=== PATIENT | male | born 1985 | race Caucasian/White ===

== ENCOUNTER 2017-08-03 21:41 | Emergency (ER) | payer SELFPAY ==
[2017-08-03] MEDS ORDERED: SULFA/TRIMETH 800/160 (DS) TAB 1 EA TAB PO ONE (21:58)
[2017-08-03 21:59] VITALS: BP 143/79; TEMP 98.8; O2SAT 98
--- NOTE | 2017-08-03 22:02 | ED.PDOC ---
History of Present Illness - General Chief Complaint: Skin/Abrasion/Tear Stated Complaint: "insect bite", elbow abcess Time Seen by Provider: 08/03/17 21:58 Source: patient Exam Limitations: no limitations - History of Present Illness Initial Comments: the patient is a 31-year-old male presenting to emergency room secondary to a small abscess forming with surrounding cellulitis to the posterior aspect left elbow. He thinks it started 2 or 3 days ago. It has been draining a little bit. No fever. No evidence of sepsis. Timing/Duration: unsure Severity: mild Improving Factors: nothing Worsening Factors: nothing Allergies/Adverse Reactions: Allergies NO KNOWN ALLERGY Allergy (Verified 05/23/12 11:46) Home Medications: Ambulatory Orders Sulfa/Trimeth 800/160 (Ds) Tab [Bactrim DS Tab] 1 ea PO BID #14 tab 08/03/17 Review of Systems - Review of Systems Constitutional: States: no symptoms reported EENTM: States: no symptoms reported Respiratory: States: no symptoms reported Cardiology: States: no symptoms reported Gastrointestinal/Abdominal: States: no symptoms reported Genitourinary: States: no symptoms reported Musculoskeletal: States: no symptoms reported Skin: States: see HPI Neurological: States: no symptoms reported Endocrine: States: no symptoms reported All other Systems: No Change from Baseline Physical Exam - Physical Exam General Appearance: Alert, Comfortable, No apparent distress Eye Exam: bilateral normal Ears, Nose, Throat: hearing grossly normal Neck: full range of motion, supple Respiratory: no respiratory distress, no accessory muscle use Cardiovascular/Chest: normal peripheral pulses, no edema Rectal Exam: deferred Extremity: normal range of motion, no pedal edema, normal capillary refill Neurologic: signaling project engineer II-XII nml as tested, alert, normal mood/affect, oriented x 3 Skin Exam: normal color - with the exception of the cellulitis andabscess of left elbow. Comments: Vital Signs - 24 hr 08/03/17 21:52 Temperature 98.8 F Pulse Rate [ 105 H left] Respiratory 18 Rate Blood Pressure 143/79 [left] O2 Sat by Pulse 98 Oximetry Progress - Progress Progress: 08/03/17 22:00 the patient's 31-year-old male with a small abscess and extending cellulitis to the posterior aspect left elbow. Abscess is in the skin only. Risk and benefits of I&D were explained and patient agreed to proceed. Wound is cleaned with alcohol. A 15 blade scalpel was used to make a three-quarter cm incision over the head of the abscess. Less than 1 cc of pus was obtained. Band-Aid was applied. No cultures obtained. Patient received a dose of Bactrim. Needs to wash the wound couple times a day with soap and water. He' ll be written for Bactrim for the next week. ER warnings were given for any worsening. Departure - Departure Clinical Impression: Abscess Disposition: Discharge to Home or Self Care Condition: Fair Departure Forms: ED Discharge - Pt. Copy, Patient Portal Self Enrollment Instructions: DI for Wound Infection Diet: regular diet Activity: increase activity as tolerated Prescriptions: Sulfa/Trimeth 800/160 (Ds) Tab [Bactrim DS Tab] 1 ea PO BID #14 tab Home Medications: Ambulatory Orders Sulfa/Trimeth 800/160 (Ds) Tab [Bactrim DS Tab] 1 ea PO BID #14 tab 08/03/17 Additional Instructions: the patient's 31-year-old male with a small abscess and extending cellulitis to the posterior aspect left elbow. Abscess is in the skin only. Risk and benefits of I&D were explained and patient agreed to proceed. Wound is cleaned with alcohol. A 15 blade scalpel was used to make a three-quarter cm incision over the head of the abscess. Less than 1 cc of pus was obtained. Band-Aid was applied. No cultures obtained. Patient received a dose of Bactrim. Needs to wash the wound couple times a day with soap and water. He' ll be written for Bactrim for the next week. ER warnings were given for any worsening.
== END 2017-08-03 22:11 | disposition home or self-care (01) ==
LOC: ER 21:41
DX: L02.414 Cutaneous abscess of left upper limb (principal); Z87.891 Personal history of nicotine dependence

== ENCOUNTER 2017-08-04 18:59 | Emergency (ER) | payer SELFPAY ==
[2017-08-04 19:10] VITALS: BP 137/78; TEMP 98.5; O2SAT 99
--- NOTE | 2017-08-04 19:15 | ED.PDOC ---
History of Present Illness - General Chief Complaint: Skin/Abrasion/Tear Time Seen by Provider: 08/04/17 19:12 Source: patient, Vital Signs reviewed Additional Information: 31 YEAR OLD WHITE MALE WHO HAD AND INCISION DRAINAGE DONE LAST NIGHT HERE IN THE ED RETURNS HE IS CONCERNED THERE IS STILL PAIN AND REDNESS AROUND THE DRAINAGE SITE ON THE LEFT ELBOW - History of Present Illness Timing/Duration: 24 hours Severity: mild Improving Factors: nothing Worsening Factors: nothing Associated Symptoms: denies symptoms Allergies/Adverse Reactions: Allergies NO KNOWN ALLERGY Allergy (Verified 05/23/12 11:46) Home Medications: Ambulatory Orders Sulfa/Trimeth 800/160 (Ds) Tab [Bactrim DS Tab] 1 ea PO BID #14 tab 08/03/17 Review of Systems - Review of Systems Constitutional: States: no symptoms reported EENTM: States: no symptoms reported Respiratory: States: no symptoms reported Cardiology: States: no symptoms reported Gastrointestinal/Abdominal: States: no symptoms reported Genitourinary: States: no symptoms reported Skin: States: see HPI Neurological: States: no symptoms reported Endocrine: States: no symptoms reported Hematologic/Lymphatic: States: no symptoms reported Past Medical History (General) - Patient Medical History Hx Asthma: No Hx Diabetes: No Hx Gastroesophageal Reflux: No - Vaccination History Hx Tetanus, Diphtheria Vaccination: Yes - Social History Hx Tobacco Use: Yes Hx Alcohol Use: Yes - Female History Patient : No Family Medical History - Family History Mother Family History: Unknown Physical Exam - Physical Exam General Appearance: Alert, Anxious Eye Exam: bilateral normal Ears, Nose, Throat: hearing grossly normal, normal ENT inspection, normal pharynx, abnormal TM (R) Neck: non-tender, full range of motion, supple Respiratory: chest non-tender, lungs clear, normal breath sounds, no respiratory distress, no accessory muscle use, respiratory distress Cardiovascular/Chest: normal peripheral pulses, regular rate, rhythm, no edema, no gallop, no JVD, no murmur Gastrointestinal/Abdominal: normal bowel sounds, non tender, soft, no organomegaly, no pulsatile mass Back Exam: normal inspection Extremity: other - LEFT ELBOW THE DRAINAGE SITE OVER THE LEFT OLECRANON BURSA IS RED BUT NO DRAINAGE NO FLUCTUATION NOTED Neurologic: wire taper II-XII nml as tested, no motor/sensory deficits, alert, normal mood/affect, oriented x 3 Progress - Results/Orders Results/Orders: HE WAS REASSURED THAT THERE IS NO COLLECTION OF PUS NOTED AT THIS TIME HE IS ON BACTRIM SUGGEST TO CONTINUE THE SAME AND FOLLOW UP WITH HIS PCP [facility] IF THERE IS FEVER CHILLS DRAINAGE SWELLING AT THE SITE Departure - Departure Clinical Impression: Abscess Time of Disposition: :18 Disposition: Discharge to Home or Self Care Condition: Good Departure Forms: ED Discharge - Pt. Copy, Patient Portal Self Enrollment Instructions: DI for Abrasion Diet: resume usual diet Home Medications: Ambulatory Orders Sulfa/Trimeth 800/160 (Ds) Tab [Bactrim DS Tab] 1 ea PO BID #14 tab 08/03/17
[2017-08-04] MEDS ORDERED: HYDROCOD/APAP 5/325 (ER DISP) #3 TAB PO ONE ×2 (19:28→19:29)
== END 2017-08-04 19:36 | disposition home or self-care (01) ==
LOC: ER 18:59
DX: L02.414 Cutaneous abscess of left upper limb (principal); Z87.891 Personal history of nicotine dependence

== ENCOUNTER 2018-10-30 08:07 | Emergency (ER) | payer SELFPAY ==
[2018-10-30] MEDS ORDERED: NALOXONE HCL INJ 1 MG/ML SYG IV ONE (08:15)
[2018-10-30 08:35] VITALS: O2SAT 100
--- NOTE | 2018-10-30 09:04 | ED.PDOC ---
History of Present Illness - General Chief Complaint: Behavioral / Psych Stated Complaint: Drug use/possible OD Time Seen by Provider: 10/30/18 09:04 Source: police Exam Limitations: clinical condition - patient hallucinating;agitated - History of Present Illness Initial Comments: Agapito Lewis 32 y/o male brought by police communications operator to er after his grandmother called up 911 on him since he had been combative and hallucinating at home stating he had been taking bunch of illicit drugs thelast one week and had been with several women.Grandmother stated to police communications operator whownrt to their house that he grabbed his grandmas cellphone while calling [phone] so he was then placed on police custody.He mentioned to nurse that he took pills- dlaudid,methadone,and reglan Timing/Duration: this morning Severity: moderate Episode Description: see hpi Allergies/Adverse Reactions: Allergies NO KNOWN ALLERGY Allergy (Verified 05/23/12 11:46) Home Medications: Ambulatory Orders Sulfa/Trimeth 800/160 (Ds) Tab [Bactrim DS Tab] 1 ea PO BID #14 tab 08/03/17 Review of Systems - Review of Systems Neurological: States: see HPI, emotional problems, other - drug use Unable to Obtain Due To: condition All other Systems: Reviewed and Negative, No Change from Baseline Past Medical History (General) - Patient Medical History Hx Asthma: No Hx Diabetes: No Hx Gastroesophageal Reflux: No Surgical History: other - hip/ leg - Vaccination History Hx Tetanus, Diphtheria Vaccination: Yes Hx Influenza Vaccination: No - Social History Hx Tobacco Use: - Unknown Hx Alcohol Use: - Unknown Hx Substance Use: Yes Hx Substance Use Treatment: Yes Hx Depression: - Unknown - Female History Patient is a Female of Child Bearing Age (10 -59 yrs old): No Patient : No Family Medical History - Family History Mother Family History: Unknown Physical Exam - Physical Exam General Appearance: Alert, No apparent distress, Other - keeps on talking refusing to respond to questions Eyes, Ears, Nose, Throat Exam: PERRL/EOMI, normal ENT inspection, pharynx normal Neck: supple, normal inspection Respiratory: chest non-tender, lungs clear, normal breath sounds, no respiratory distress Cardiovascular/Chest: normal peripheral pulses, regular rate, rhythm, no murmur Peripheral Pulses: radial,right: 2+, radial,left: 2+ Gastrointestinal/Abdominal: non tender, soft, no organomegaly Extremities Exam: non-tender, normal range of motion, no evidence of injury Neurological: alert Appearance: impaired insight Behavior/Eye Contact/Speech: avoids eye contact, refused to answer Thoughts/Hallucinations: tactile hallucinations Skin Exam: normal color, warm/dry, other - tattoo calix Progress - Progress Progress: 10/30/18 09:22 10/30/18 08:15 CARDIAC PANEL,ER Stat HEPATIC FUNCTION PANEL Stat 10/30/18 09:05 URINE DRUG SCREEN, 7 ASSAY Stat Multiple Vitamin Inj [MVI Injectable] 10 ml Sodium Chloride 0.9% 1000ML [Ns 1000 ml] 1,000 ml IVPB ONCE URINALYSIS Stat 10/30/18 09:30 Multiple Vitamin Inj [MVI Injectable] 10 ml Thiamine HCl Inj 100 mg Sodium Chloride 0.9% 1000ML [Ns 1000 ml] 1,000 ml IVS Q24H Laboratory Results - last 24 hr 10/30/18 08:15 WBC 10.8 RBC 5.27 Hgb 16.1 Hct 45.6 MCV 86.5 MCH 30.5 MCHC 35.3 RDW 13.9 Plt Count 291 MPV 8.5 Absolute Neuts (auto) 6.30 Absolute Lymphs (auto) 3.20 Absolute Monos (auto) 1.00 H Absolute Eos (auto) 0.10 Absolute Basos (auto) 0.10 Neutrophils % 58.5 Lymphocytes % 29.7 Monocytes % 9.7 H Eosinophils % 1.3 Basophils % 0.8 Vital Signs 10/30/18 10/30/18 08:10 08:13 Temperature 97.9 F Pulse Rate [L 97 H 97 H finger] Respiratory 24 Rate Blood Pressure 112/67 [R brachial] O2 Sat by Pulse 100 Oximetry - Results/Orders Results/Orders: 10/30/18 09:30 Multiple Vitamin Inj [MVI Injectable] 10 ml Thiamine HCl Inj 100 mg Sodium Chloride 0.9% 1000ML [Ns 1000 ml] 1,000 ml IVS Q24H 10/30/18 10:30 EKG STAT 10/30/18 11:06 Referral:Mental Health ONCE Laboratory Results - last 24 hr 10/30/18 10/30/18 10/30/18 08:15 08:15 10:57 WBC 10.8 RBC 5.27 Hgb 16.1 Hct 45.6 MCV 86.5 MCH 30.5 MCHC 35.3 RDW 13.9 Plt Count 291 MPV 8.5 Absolute Neuts (auto) 6.30 Absolute Lymphs (auto) 3.20 Absolute Monos (auto) 1.00 H Absolute Eos (auto) 0.10 Absolute Basos (auto) 0.10 Neutrophils % 58.5 Lymphocytes % 29.7 Monocytes % 9.7 H Eosinophils % 1.3 Basophils % 0.8 PT 9.4 INR 0.94 PTT (SP) 22.7 Sodium 140 Potassium 3.0 L Chloride 104 Carbon Dioxide 18 L Anion Gap 21.0 H BUN 21 H Creatinine 1.33 H BUN/Creatinine Ratio 15.8 Random Glucose 101 Serum Osmolality 282.5 Calcium 10.3 H Magnesium 1.9 Total Bilirubin 1.5 H Direct Bilirubin 0.2 Indirect Bilirubin 1.3 H AST 36 ALT 27 Alkaline Phosphatase 78 Creatine Kinase 668 H* CK-MB (CK-2) 20.0 H* CK-MB (CK-2) % 2.99 Troponin I < 0.02 Serum Total Protein 8.2 Albumin 4.7 Urine Color Urine Appearance Urine pH Ur Specific [place] Urine Protein Urine Glucose (UA) Urine Ketones Urine Blood Urine Nitrite Urine Bilirubin Urine Urobilinogen Ur Leukocyte Esterase Urine RBC Urine WBC Ur Epithelial Cells Ur Transition Epith Cell Amorphous Sediment Urine Bacteria Hyaline Casts Urine Mucus Urine Opiates Screen Negative Urine Barbiturates Negative Ur Phencyclidine Scrn Negative U Amphetamin/Meth Scrn Positive H U Benzodiazepines Scrn Negative U Cocaine Metab Screen Negative U Cannabinoids Screen Positive H Ethyl Alcohol < 5.40 10/30/18 10:57 WBC RBC Hgb Hct MCV MCH MCHC RDW Plt Count MPV Absolute Neuts (auto) Absolute Lymphs (auto) Absolute Monos (auto) Absolute Eos (auto) Absolute Basos (auto) Neutrophils % Lymphocytes % Monocytes % Eosinophils % Basophils % PT INR PTT (SP) Sodium Potassium Chloride Carbon Dioxide Anion Gap BUN Creatinine BUN/Creatinine Ratio Random Glucose Serum Osmolality Calcium Magnesium Total Bilirubin Direct Bilirubin Indirect Bilirubin AST ALT Alkaline Phosphatase Creatine Kinase CK-MB (CK-2) CK-MB (CK-2) % Troponin I Serum Total Protein Albumin Urine Color Yellow Urine Appearance Clear Urine pH 6.0 Ur Specific [place] 1.020 Urine Protein 30 Urine Glucose (UA) Negative Urine Ketones 15 H Urine Blood Moderate H Urine Nitrite Negative Urine Bilirubin Small H Urine Urobilinogen 1.0 Ur Leukocyte Esterase Negative Urine RBC 10-20 H Urine WBC 0-1 Ur Epithelial Cells 0-1 Ur Transition Epith Cell 1-3 Amorphous Sediment Trace Urine Bacteria Rare Hyaline Casts 1-3 Urine Mucus Trace Urine Opiates Screen Urine Barbiturates Ur Phencyclidine Scrn U Amphetamin/Meth Scrn U Benzodiazepines Scrn U Cocaine Metab Screen U Cannabinoids Screen Ethyl Alcohol Patient was released under police custody - EKG/XRAY/CT EKG: Sinus, no ST T wave changes Comments: HR-h6 Departure - Departure Clinical Impression: Amphetamine abuse, Acute psychosis Time of Disposition: 12:11 Disposition: Prison Condition: Fair Departure Forms: ED Discharge - Pt. Copy, Patient Portal Self Enrollment Instructions: DI for Psychosis Home Medications: Ambulatory Orders Sulfa/Trimeth 800/160 (Ds) Tab [Bactrim DS Tab] 1 ea PO BID #14 tab 08/03/17 Additional Instructions: Return to Emergency room as needed
[2018-10-30] MEDS ORDERED: diphenhydrAMINE HCL 50 MG/ML VIAL IV ONE (09:05)
[2018-10-30] MEDS ORDERED: ZIPRASIDONE INJ 20 MG/ML VIAL IM ONE (09:05)
[2018-10-30] MEDS ORDERED: MULTIPLE VITAMIN INJ 10 ML, THIAMINE HCL INJ 100 MG in SODIUM CHLORIDE 0.9% 1000ML 1,00... IVS SCH (09:30)
[2018-10-30] MEDS ORDERED: WATER FOR INJ 10 ML VIAL INJ ONE (09:51)
[2018-10-30] MEDS ORDERED: MULTIPLE VITAMIN 10 ML VIAL ONE (10:06)
[2018-10-30] MEDS ORDERED: SODIUM CHLORIDE 0.9% 1000ML 1,000 ML ONE (10:06)
[2018-10-30] MEDS ORDERED: THIAMINE HCL INJ 100 MG/ML VIAL ONE (10:08)
[2018-10-30] MEDS: MULTIPLE VITAMIN INJ 10 ML in SODIUM CHLORIDE 0.9% 1000ML 1,000 ML IVPB ONE ×2 (10:16→11:55)
[2018-10-30] MEDS ORDERED: diazePAM INJ 10 MG/2 ML SYG IV ONE (12:07)
[2018-10-30 12:52] VITALS: TEMP 97
[2018-10-30 12:54] VITALS: BP 101/51
== END 2018-10-30 12:33 ==
LOC: ER 08:07
DX: F15.10 Other stimulant abuse, uncomplicated (principal); F23 Brief psychotic disorder
CPT/HCPCS: 36415; 80048; 80076; 80307; 80320; 81001; 82550; 82553; 84484; 85025; 85610; 85730; 93005; A4216; J1200; J2060; J2310; J3360; J3411; J3486; J7030

== ENCOUNTER 2019-09-14 13:58 | Emergency (ER) | payer SELFPAY ==
[2019-09-14] MEDS ORDERED: SODIUM CHLORIDE 0.9% 1000ML 1,000 ML IVS PRN (14:22)
[2019-09-14] MEDS ORDERED: SODIUM CHLORIDE 0.9% (FLUSH) 10 ML SYG IV PRN (14:22)
[2019-09-14] MEDS ORDERED: ONDANSETRON INJ 4 MG/2 ML VIAL IV ONE (14:22)
--- NOTE | 2019-09-14 14:53 | RAD ---
EXAM DESCRIPTION: Chest,1 View CLINICAL HISTORY: chest pain COMPARISON: None Available. TECHNIQUE: One view radiograph of the chest FINDINGS: Cardiac silhouette shows normal heart size. Pulmonary vascularity is within normal limits. Lungs show no confluent infiltrates. No pleural effusion. No pneumothorax. No acute osseous abnormality. IMPRESSION: No acute cardiopulmonary process. Electronically signed by: Avelino Coughlin MD 09/14/2019 2:52 PM CDT
[2019-09-14] MEDS ORDERED: SODIUM CHLORIDE 0.9% 1000ML 1,000 ML IVS ONE (16:37)
--- NOTE | 2019-09-14 16:40 | ED.PDOC ---
History of Present Illness - General Chief Complaint: Behavioral / Psych Stated Complaint: anxiety Time Seen by Provider: 09/14/19 14:21 Source: patient, RN notes reviewed, Vital Signs reviewed, EMS notes reviewed Exam Limitations: no limitations - History of Present Illness Initial Comments: Patient is a 33-year-old white male who presents with complaints of anxiety, hip pain, knee pain, chest pain, starving because he has not eaten in 5 days. Patient states he is homeless and living on the streets. He is not from here and got dropped off here and cannot get back home. He states that he lives somewhere around [place]. Patient is unable to describe the pain in his chest hip or knee. But he is distractible and forgets about the pain once we start talking. All his symptoms resolved after he had Ativan 1 mg IV push. Patient is asking for food. Symptoms also improved after eating. Timing/Duration: 24 hours, getting worse Severity: severe Improving Factors: medication - Ativan Worsening Factors: nothing Associated Symptoms: chest pain, malaise, weakness Allergies/Adverse Reactions: Allergies NO KNOWN ALLERGY Allergy (Verified 09/14/19 14:17) Home Medications: Ambulatory Orders Sulfa/Trimeth 800/160 (Ds) Tab [Bactrim DS Tab] 1 ea PO BID #14 tab 08/03/17 Review of Systems - Review of Systems Constitutional: States: see HPI, malaise, weakness. Denies: chills, fever EENTM: States: no symptoms reported. Denies: eye pain, blurred vision, double vision, throat pain, throat swelling, mouth pain, mouth swelling Respiratory: States: no symptoms reported. Denies: cough, short of breath, stridor, wheezing Cardiology: States: see HPI, chest pain. Denies: palpitations, syncope Gastrointestinal/Abdominal: States: no symptoms reported. Denies: abdominal pain, diarrhea, nausea, vomiting Genitourinary: States: no symptoms reported. Denies: discharge, dysuria, frequency Musculoskeletal: States: see HPI, joint pain - Right knee and hip. Denies: back pain, neck pain Skin: States: no symptoms reported. Denies: change in color, rash Neurological: States: depressed - Patient became depressed after we told him that we were going to discharge him from the ED. Patient then stated he would kill himself if we discharged him. Patient states he needs some place to go. Endocrine: States: no symptoms reported Hematologic/Lymphatic: States: no symptoms reported All other Systems: No Change from Baseline Past Medical History (General) - Patient Medical History Hx Asthma: No Hx of COPD: No Hx Cardiac Disorders: No Hx Congestive Heart Failure: No Hx Diabetes: No Hx Gastroesophageal Reflux: No Surgical History: no surgical history - Vaccination History Hx Tetanus, Diphtheria Vaccination: Yes Hx Influenza Vaccination: No - Social History Hx Tobacco Use: - Unknown Hx Alcohol Use: - Unknown Hx Substance Use: Yes Hx Substance Use Treatment: Yes Hx Depression: - Unknown - Activities of Daily Living Hospice Agency (if applicable):: None - Female History Patient is a Female of Child Bearing Age (10 -59 yrs old): No Patient : No Family Medical History - Family History Mother Family History: Unknown Physical Exam - Physical Exam General Appearance: Agitated, Alert, Anxious, Obvious distress, Restless, Unkempt, Well Developed, Well Hydrated, Well Nourished Eye Exam: bilateral normal Ears, Nose, Throat: hearing grossly normal, normal ENT inspection, normal pharynx Neck: non-tender, full range of motion, supple, normal inspection Respiratory: chest non-tender, lungs clear, normal breath sounds, no respiratory distress, no accessory muscle use, respiratory distress Cardiovascular/Chest: normal peripheral pulses, regular rate, rhythm, no edema, no gallop, no JVD, no murmur Peripheral Pulses: radial,right: 2+, radial,left: 2+ Gastrointestinal/Abdominal: normal bowel sounds, non tender, soft, no organomegaly, no pulsatile mass Back Exam: normal inspection, no CVA tenderness, no vertebral tenderness Extremity: normal range of motion, normal inspection, no pedal edema, normal capillary refill, pelvis stable, swelling - Left knee just over the proximal tibia. No crepitus or step-offs Neurologic: creative resource manager II-XII nml as tested, no motor/sensory deficits, alert, oriented x 3, depressed affect, other - Anxious and agitated Skin Exam: normal color, warm/dry Lymphatic: no adenopathy Progress - Progress Progress: Differential diagnosis: Homelessness, methamphetamine abuse, acute AL, graded assault among others. 09/14/19 16:44 Patient's lab work was relatively unremarkable except for dehydration and some very mild rhabdomyolysis. Was planning on discharging patient and patient then stated if we discharge him he would kill himself. Patient is homeless. [facility] is going to come out and evaluate him. Will defer disposition until evaluation by [facility]. 09/14/19 17:58 Patient is medically clear. Patient was accepted to crisis center in [place]. Plan on discharge to the care of the Quality Management Nurse will transport him to the crisis center. Of discussed the plan of care with the patient and he voices understanding and agreement with the plan of care. Remy Brambila M.D. #[id number] - Results/Orders Results/Orders: 09/14/19 14:22 IV Care:Saline Lock per Protoc QSHIFT Telemetry .ONCE Sodium Chloride 0.9% (Flush) [Saline Flush Syringe] 10 ml IV PRN PRN Sodium Chloride 0.9% 1000ML [Ns 1000 ml] 1,000 ml IVS .QD EKG Stat Pulse Ox Stat 09/14/19 16:37 Sodium Chloride 0.9% 1000ML [Ns 1000 ml] 1,000 ml IVS ONCE 09/14/19 Lunch Regular Diet Laboratory Results - last 24 hr 09/14/19 09/14/19 09/14/19 14:30 14:30 15:15 WBC 8.8 RBC 4.85 Hgb 14.9 Hct 41.9 L MCV 86.4 MCH 30.6 MCHC 35.5 RDW 13.3 Plt Count 195 MPV 8.4 Absolute Neuts (auto) 5.00 Absolute Lymphs (auto) 2.60 Absolute Monos (auto) 0.90 H Absolute Eos (auto) 0.20 Absolute Basos (auto) 0.10 Neutrophils % 57.1 Lymphocytes % 30.1 Monocytes % 9.8 H Eosinophils % 2.1 Basophils % 0.9 PT 9.9 INR 1.00 PTT (SP) 24.8 Sodium 133 L Potassium 3.3 L Chloride 102 Carbon Dioxide 19 L Anion Gap 15.3 BUN 26 H Creatinine 1.03 BUN/Creatinine Ratio 25.2 H Random Glucose 128 H Serum Osmolality 272.8 L Calcium 8.7 Magnesium 1.9 Total Bilirubin 2.5 H* Direct Bilirubin 0.3 H Indirect Bilirubin 2.2 H AST 34 ALT 23 Alkaline Phosphatase 73 Creatine Kinase 527 H* CK-MB (CK-2) 17.6 H* CK-MB (CK-2) % 3.34 Troponin I < 0.02 B-Natriuretic Peptide 22.3 Serum Total Protein 7.4 Albumin 4.0 Urine Color Urine Appearance Urine pH Ur Specific Goodwin Urine Protein Urine Glucose (UA) Urine Ketones Urine Blood Urine Nitrite Urine Bilirubin Urine Urobilinogen Ur Leukocyte Esterase Urine RBC Urine WBC Ur Epithelial Cells Amorphous Sediment Urine Bacteria Urine Mucus Salicylates Urine Opiates Screen Negative Acetaminophen < 10.0 L Urine Barbiturates Negative Ur Phencyclidine Scrn Negative U Amphetamin/Meth Scrn Positive H U Benzodiazepines Scrn Positive H U Cocaine Metab Screen Negative U Cannabinoids Screen Positive H Ethyl Alcohol < 5.40 09/14/19 15:15 WBC RBC Hgb Hct MCV MCH MCHC RDW Plt Count MPV Absolute Neuts (auto) Absolute Lymphs (auto) Absolute Monos (auto) Absolute Eos (auto) Absolute Basos (auto) Neutrophils % Lymphocytes % Monocytes % Eosinophils % Basophils % PT INR PTT (SP) Sodium Potassium Chloride Carbon Dioxide Anion Gap BUN Creatinine BUN/Creatinine Ratio Random Glucose Serum Osmolality Calcium Magnesium Total Bilirubin Direct Bilirubin Indirect Bilirubin AST ALT Alkaline Phosphatase Creatine Kinase CK-MB (CK-2) CK-MB (CK-2) % Troponin I B-Natriuretic Peptide Serum Total Protein Albumin Urine Color [place]far[place] Urine Appearance Sl cloudy Urine pH 5.5 Ur Specific Goodwin >= 1.030 Urine Protein Negative Urine Glucose (UA) Negative Urine Ketones 15 H Urine Blood Negative Urine Nitrite Negative Urine Bilirubin Small H Urine Urobilinogen 0.2 Ur Leukocyte Esterase Negative Urine RBC 1-3 Urine WBC 0-1 Ur Epithelial Cells 0-1 Amorphous Sediment 1+ Urine Bacteria 0 Urine Mucus Moderate Salicylates Urine Opiates Screen Acetaminophen Urine Barbiturates Ur Phencyclidine Scrn U Amphetamin/Meth Scrn U Benzodiazepines Scrn U Cocaine Metab Screen U Cannabinoids Screen Ethyl Alcohol EXAM DESCRIPTION: Chest,1 View CLINICAL HISTORY: chest pain COMPARISON: None Available. TECHNIQUE: One view radiograph of the chest FINDINGS: Cardiac silhouette shows normal heart size. Pulmonary vascularity is within normal limits. Lungs show no confluent infiltrates. No pleural effusion. No pneumothorax. No acute osseous abnormality. IMPRESSION: No acute cardiopulmonary process. Electronically signed by: Avelino Coughlin MD 09/14/2019 2:52 PM CDT EKG performed at 14 September 2019 at 1403 hrs.: Normal sinus rhythm at 73 bpm, normal axis deviation, no ST or T wave changes, normal EKG. There are no comparisons EKGs available. 3 VIEWS OF LEFT KNEE HISTORY: Knee pain. COMPARISON: None. FINDINGS: No acute fracture or dislocation is seen. The joint spaces are preserved. No knee joint effusion is seen. There is soft tissue swelling overlying the anterior left knee. IMPRESSION: Mild soft tissue swelling but without acute fracture seen. Electronically signed by: Antonino Pierre MD 09/14/2019 5:42 PM CDT Departure - Departure Clinical Impression: Homelessness, Amphetamine abuse, Dehydration, Ketosis Time of Disposition: 17:59 Disposition: Discharge to Home or Self Care Condition: Fair Departure Forms: ED Discharge - Pt. Copy, Patient Portal Self Enrollment Diet: resume usual diet Activity: increase activity as tolerated Home Medications: Ambulatory Orders Sulfa/Trimeth 800/160 (Ds) Tab [Bactrim DS Tab] 1 ea PO BID #14 tab 08/03/17
--- NOTE | 2019-09-14 17:44 | RAD ---
3 VIEWS OF LEFT KNEE HISTORY: Knee pain. COMPARISON: None. FINDINGS: No acute fracture or dislocation is seen. The joint spaces are preserved. No knee joint effusion is seen. There is soft tissue swelling overlying the anterior left knee. IMPRESSION: Mild soft tissue swelling but without acute fracture seen. Electronically signed by: Antonino Pierre MD 09/14/2019 5:42 PM CDT
[2019-09-14 18:04] VITALS: TEMP 98.4; O2SAT 94
[2019-09-14 18:08] VITALS: BP 133/60
== END 2019-09-14 17:55 | disposition home or self-care (01) ==
LOC: ER 13:58
DX: E86.0 Dehydration (principal); F15.10 Other stimulant abuse, uncomplicated; Z59.0 Homelessness; E88.89 Other specified metabolic disorders
CPT/HCPCS: 36415; 71045; 73562; 80048; 80076; 80307; 80320; 80329; 81001; 82550; 82553; 83880; 84484; 85025; 85610; 85730; 93005; J2060; J2405; J7030